=== PATIENT | male | born 1950 | race Two or more races ===

== ENCOUNTER 2024-11-09 15:29 | Emergency (ER) | payer OTHER ==
[~2024-11-09] VITALS: Ht 188 cm; Wt 77.1 kg
[2024-11-09] MEDS ORDERED: TOPROL XL25 M1 (16:25)
[2024-11-09] MEDS ORDERED: CRESTOR40 MG PO (16:25)
[2024-11-09] MEDS ORDERED: ELIQUIS5 MG PO (16:26)
[2024-11-09] MEDS ORDERED: ECOTRIN81 MG (16:26)
[2024-11-09 18:48] LABS: HEMATOCRIT 41.9 % (39.0-48.0); HEMOGLOBIN 14.4 g/dL (13-16.00); MEAN CELL VOLUME 94.3 fL (80.0-100.00); MEAN CORPUSCULAR HEMOGLOBIN 32.4 pg (27.00-32.0); MEAN CORPUSCULAR HGB CONC 34.3 g/dl (32.0-36.0); PLATELET COUNT 140 K/uL (150-450); RED BLOOD COUNT 4.44 M/uL (4.00-6.00); RED CELL DISTRIBUTION WIDTH 13.6 % (11.5-14.5)
[2024-11-09 19:07] LABS: INR 1.05; PARTIAL THROMBOPLASTIN TIME 27.6 SECONDS (22.0-34.0); PROTHROMBIN TIME 11.4 SECONDS (9.0-11.5)
[2024-11-09 19:11] LABS: CALCIUM 9.4 mg/dL (8.5-10.1); CREATININE SERUM 0.98 mg/dL (0.70-1.30); GFR 74.36; POTASSIUM 4.18 mEq/L (3.5-5.1)
== END 2024-11-09 20:57 | disposition home or self-care (01) ==
LOC: ER 15:32
PROVIDERS: Emergency Medicine
DX: R07.89 Other chest pain (principal); I10 Essential (primary) hypertension